=== PATIENT | male | born 1955 | race Caucasian/White ===

== ENCOUNTER 2020-08-21 07:31 | Inpatient (IN) ==
--- NOTE | 2020-08-10 14:49 | PAT Medication Instructions ---
Medication Instructions Date of Service August 10, 2020 Home Medications Medication Instructions Recorded dutasteride 0.5 mg capsule 0.5 mg PO DAILY #30 cap 07/24/20 dutasteride 0.5 mg capsule 0.5 mg PO DAILY Take morning of surgery With a small sip of water, OTHERWISE NOTHING TO EAT OR DRINK AFTER MIDNIGHT: dutasteride 0.5 mg capsule 0.5 mg PO DAILY Other Notes If you have any questions please call us at [phone] or [phone] or [phone] or [phone]
--- NOTE | 2020-08-15 09:45 | Anesthesiology Consultation ---
Date of Service August 15, 2020 Assessment & Plan (1) Encounter for pre-operative examination: COVID Status: As of 08/15 assessment, patient denies travel to endemic area, known exposure/sick contacts, or symptoms of COVID19. Patient instructed that they and their household members must follow strict social distancing guidelines, wear a mask in public and avoid travel/events/gatherings for 14 days prior to surgery. Preoperative COVID19 testing completed today at [facility] (08/15). Patient made aware to self-isolate as much as possible between COVID testing and surgery. 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 He will be working between his covid test and his surgery as he has previously scheduled appointments. Today, for example, he will be going to a [place] to investigate noises in the cam. He was advised to wear a mask and double-mask if he can, and try to maintain six foot distance from others. Chart Review Chart Review: Acceptable Risk for Surgery and Patient seen in Pre Admission Testing Teaching & Discussion Instructed NPO after midnight before surgery, except medications with 15 cc of water. Medication instructions provided according to the [facility] guidelines. History Surgery Operation Date: 08/21/20 12:15 Proposed Procedures p Transurethral Resection Prostate - Joaquim Mills MD Height/Weight Height: 5 ft 8 in Weight: 62.3 kg Allergies Allergy/AdvReac Type Severity Reaction Status Date / Time iodine Allergy Intermediate BP Verified 08/10/20 11:33 DROPPED/FELT LIKE GOING TO PASS OUT Medications Home Medications Medication Instructions Recorded Confirmed Last Taken dutasteride 0.5 mg capsule 0.5 mg PO DAILY #30 cap 07/24/20 08/10/20 Unknown ciprofloxacin HCl 250 mg tablet 250 mg PO BID 10 Days #20 tab 08/13/20 Unknown Past Medical History Medical History BPH (benign prostatic hyperplasia) Khan catheter in place HAS HAD FOR 6 MONTHS (GETS CHANGED AT OFFICE APTS OR E.R.) Exercise / Class Metabolic Activity II 4-5 Yardwork/Stairs/Walk up hill Past Family History Family History Grandfather Diabetes Mother Glaucoma Other No family history of adverse response to anesthesia Past Surgical History Surgical History History of colonoscopy Hx of hemorrhoidectomy Hx of prostate biopsy [place] teeth removed Past Anesthesia History No Hx of Anesthesia Complications and No Family Hx of Anesthesia Complications History of PONV No Hx of PONV and No Hx of Motion Sickness Social History Smoking Status: Never smoker Do You Dip or Chew Tobacco: No Hx Alcohol Use: No Hx Substance Use: No substance use type: does not use Review of Systems Pt denies any recent chest pain, shortness of breath, palpitations, cough, fever, URI, or uncontrolled acid reflux. Physical Exam Vital Signs BP: 135/81 P: 72bpm SPO2: 99% RA T: 98.4 F R: 16 ENMT Mouth: no dental restorations, no chipped teeth and no loose teeth Thyromental Distance: > or= 3.5 Finger Breadths Mallampati Class: I Neck + facial hair (medium length cotto, amenable to trimming); neck extension not limited Respiratory normal respiratory effort, lungs clear to auscultation Cardiovascular RRR, no murmur, no edema Testing Laboratory Results 08/15/20 09:55 08/15/20 09:55 Urine Color Yellow 08/15/20 08:09 Urine Appearance Clear (Clear) 08/15/20 08:09 Urine pH 6.5 (4.5-7.5) 08/15/20 08:09 Ur Specific [place] 1.016 (1.000-1.030) 08/15/20 08:09 Urine Protein 1+ (Negative) H 08/15/20 08:09 Urine Glucose (UA) Negative (Negative) 08/15/20 08:09 Urine Ketones Negative (Negative) 08/15/20 08:09 Urine Nitrite Positive (Negative) A 08/15/20 08:09 Ur Leukocyte Esterase 3+ (Negative) H 08/15/20 08:09 Urine WBC (Auto) >30 /hpf (0-5) H 08/15/20 08:09 Urine RBC (Auto) 0-4 /hpf (0-4) 08/15/20 08:09 U Hyaline Cast (Auto) 1-5 /lpf (0-5) 08/15/20 08:09 U Epithel Cells (Auto) 0-5 /lpf (0-5) 08/15/20 08:09 Urine Bacteria (Auto) Negative (Negative) 08/15/20 08:09 Blood Type O Negative 08/15/20 09:55 Antibody Screen NEGATIVE 08/15/20 09:55 Creatinine consistent with obstructive uropathy. Electrocardiogram Date: 08/15/20 Findings: + NSR @ (61bpm) Minimal voltage criteria for LVH, may be normal variant. ST elevation, consider early repolarization. Patient denies any cardiopulmonary complaints such as chest pain, chest tightness, SOB. Chest X-Ray Date: 08/15/20 Mildly hyperexpanded lungs and chronic changes at the left lung apex. Otherwise, no acute process within the chest.
[2020-08-15 10:41] LABS: Basophils # (auto) 0.02 K/uL (0-0.2); Basophils % (auto) 0.4 %; Eosinophils # (auto) 0.09 K/uL (0-0.5); Eosinophils % (auto) 1.6 %; Hematocrit (blood only) 36.4 % (42-52); Hemoglobin 12.3 g/dL (14.0-18.0); Immature Granulocytes # (auto) 0.01 K/uL (0.00-0.02); Immature Granulocytes % (auto) 0.2 %; Lymphocytes # (auto) 0.95 K/uL (1.2-3.4); Lymphocytes % (auto) 17.2 %; Mean Corpuscular Hemoglobin 29.6 pg (25-34); Mean Corpuscular Hgb Conc 33.8 g/dL (32-36); Mean Corpuscular Volume 87.5 fL (80-100); Mean Platelet Volume 9.2 fL (7.4-10.4); Monocytes # (auto) 0.33 K/uL (0.11-0.59); Neutrophils # (auto) 4.11 K/uL (1.4-6.5); Neutrophils % (auto) 74.6 %; Platelet Count 313 K/uL (130-400); RDW Coefficient of Variation 12.9 % (11.5-14.5); RDW Standard Deviation 41.5 fL (36.4-46.3); Red Blood Count 4.16 M/uL (4.7-6.1); White Blood Count 5.51 K/uL (4.8-10.8)
[2020-08-15 10:48] LABS: Appearance Urine Clear (Clear); Bacteria Urine Automated Negative (Negative); Bilirubin Urine Negative (Negative); Blood Urine 1+ (Negative); Color Urine Yellow; Epithelial Cell Urine Auto 0-5 /lpf (0-5); Glucose Urine UA Negative (Negative); Ketones Urine Negative (Negative); Leukocyte Esterase Urine 3+ (Negative); Nitrite Urine Positive (Negative); Protein Urine 1+ (Negative); RBC Urine Automated 0-4 /hpf (0-4); Specific Gravity Urine 1.016 (1.000-1.030); Urobilinogen Urine Negative (Negative); WBC Urine Automated >30 /hpf (0-5); pH Urine 6.5 (4.5-7.5)
--- NOTE | 2020-08-15 11:17 | XRay Report ---
XR chest Pre-admission PA/Lat HISTORY: Preop. COMPARISON: None. FINDINGS: The lungs are mildly hyperexpanded. The heart is normal in size. No pleural effusions. No p neumothorax. Old, healed left-sided rib fractures. Mild left apical pleural thickening with subpleura l reticulation. This is likely chronic. Otherwise, no focal lung consolidations to suggest pneumonia. No evidence for pulmonary edema. IMPRESSION: Mildly hyperexpanded lungs and chronic changes at the left lung apex. Otherwise, no acute process wit hin the chest. ACT 112: Negative or not required by law. Electronically signed by: Timbo Avina M.D. 08/15/2020 11:16 AM
[2020-08-15 12:12] LABS: BUN Creatinine Ratio 13.6 (10-20); Calcium 9.2 mg/dl (8.5-10.1); Creatinine Clr Calc Pharmacy 34.1 ml/min; Est GFR (African American) 41.4; Est GFR (Non-African American) 35.8; Potassium 4.7 mmol/L (3.5-5.1)
--- NOTE | 2020-08-15 12:24 | Electrocardiogram Report ---
Test Reason : Blood Pressure : / mmHG Vent. Rate : 061 BPM Atrial Rate : 061 BPM P-R Int : 146 ms QRS Dur : 090 ms QT Int : 400 ms P-R-T Axes : 086 088 068 degrees QTc Int : 402 ms Normal sinus rhythm Minimal voltage criteria for LVH, may be normal variant ST elevation, consider early repolarization Borderline ECG No previous ECGs available Confirmed by Damian Escobedo ([id number]) on 08/15/2020 12:23:53 PM Referred By: Joaquim Mills Confirmed By:Praveen Escobedo
[~2020-08-21 07:31] MED LIST: CIPROFLOXACIN / D5W 200 MG/100 ML BAG IV SCH; GENTAMICIN SULFATE 160 MG in DEXTROSE 5% 100 ML IV SCH; LR 15ML/HR IV SCH; MIDAZOLAM HCL 1 MG/ML 2ML VIAL ONE; fentaNYL citrate 100 MCG/2 ML VIAL ONE
[2020-08-21] MEDS ORDERED: LIDOCAINE HCL 2% 2 ML VIAL/AMP(20MG/ML) INFIL ONE (08:04)
[2020-08-21] MEDS ORDERED: ONDANSETRON INJ 2 MG/ML 2 ML VIAL ONE (08:04)
[2020-08-21] MEDS ORDERED: PROPOFOL IV EMULSION 10 MG/ML 20 ML VIAL IV ONE (08:04)
[2020-08-21] MEDS ORDERED: ePHEDrine sulfate 50 MG/ML AMP IV PRN (08:05)
[2020-08-21] MEDS ORDERED: fentaNYL citrate 100 MCG/2 ML VIAL IV PRN (08:05)
[2020-08-21] MEDS ORDERED: ONDANSETRON INJ 2 MG/ML 2 ML VIAL IV PRN ×2 (08:05→13:25)
[2020-08-21] MEDS ORDERED: ATROPINE SULFATE 0.1 MG/ML 10ML SYR IV PRN (08:05)
--- NOTE | 2020-08-21 09:03 | History & Physical Bridge Note ---
Date of Service August 21, 2020 History & Physical Bridge Note I have examined the patient, reviewed the History & Physical and in the interval since the performance of the History & Physical I have noted the following changes of clinical significance: no changes noted
[2020-08-21] MEDS ORDERED: DEXAMETHASONE SOD INJ 4 MG/ML VIAL ONE (09:58)
[2020-08-21] MEDS ORDERED: PHENYLEPHRINE 100MCG/ML 5ML SYR ONE (09:58)
[2020-08-21] MEDS ORDERED: ePHEDrine sulfate 50 MG/ML SYR ONE (09:58)
[2020-08-21] MEDS ORDERED: fentaNYL citrate 100 MCG/2 ML VIAL ONE (10:15)
[2020-08-21] MEDS ORDERED: BELLADONNA/OPIUM SUPP 60 MG SUPP PR ONE ×2 (12:08→12:28)
--- NOTE | 2020-08-21 12:45 | Post Operative Brief Note ---
PG Immediate Post Op with CF Date of Surgery August 21, 2020 Pre & Post Diagnosis Operation Date: 08/21/20 09:05 Pre-Op Diagnosis: Benign Prostatic Hypertrophy with Urinary Retention and Neurogenic Bladder Post-Op Diagnosis: Benign Prostatic Hypertrophy with Urinary Retention and Neurogenic Bladder I identified the patient and participated in the time-out.: Yes Procedure Operation Date: 08/21/20 09:05 Actual Procedures p Transurethral Resection Prostate - Joaquim Mills MD Surgeon Joaquim Mills MD Final Inspection Supervisor none Estimated Blood Loss 200 Findings Consistent with Post-Op Diagnosis Specimens Specimen Description: A. Prostate Chips
--- NOTE | 2020-08-21 12:53 | Anesthesiology Progress Note ---
Date of Service August 21, 2020 Anesthesia Post Procedure Vital Signs Vital Signs: Temp Pulse Pulse Resp BP BP Pulse Ox 08/21/20 12:50 89 19 109/71 100 08/21/20 12:40 76 21 128/83 100 08/21/20 12:30 87 15 140/90 100 08/21/20 12:24 97.7 F 81 22 146/90 H 100 08/21/20 07:45 97.9 F 73 20 168/98 H 100 Transfer of Care Handoff Completed per policy Notes Mental Status: alert / awake / arousable and participated in evaluation Patient Amnestic to Procedure: Yes Nausea / Vomiting: adequately controlled Pain: adequately controlled Airway Patency, RR, SpO2: stable & adequate BP & HR: stable & adequate Hydration State: stable & adequate Anesthetic Complications: no major complications apparent and Pt Satisfied with anesthetic care
[2020-08-21] MEDS ORDERED: oxyCODONE HCL IR 5 MG TAB (IMMEDIATE RELEASE) PO PRN ×2 (13:25)
[2020-08-21] MEDS ORDERED: MoRPHine SULFATE 2 MG/ML CARP IV PRN (13:25)
[2020-08-21] MEDS: LACTATED RINGER'S 1,000 ML IV SCH ×2 (13:41→20:34)
[2020-08-21] MEDS: CIPROFLOXACIN / D5W 400 MG/200 ML BAG IV SCH (20:24)
[2020-08-22] MEDS: LACTATED RINGER'S 1,000 ML IV SCH (02:44)
[2020-08-22 07:39] LABS: Basophils # (auto) 0.01 K/uL (0-0.2); Basophils % (auto) 0.1 %; Eosinophils # (auto) 0.03 K/uL (0-0.5); Eosinophils % (auto) 0.2 %; Hematocrit (blood only) 33.2 % (42-52); Hemoglobin 11.2 g/dL (14.0-18.0); Immature Granulocytes # (auto) 0.02 K/uL (0.00-0.02); Immature Granulocytes % (auto) 0.2 %; Lymphocytes # (auto) 0.93 K/uL (1.2-3.4); Lymphocytes % (auto) 7.6 %; Mean Corpuscular Hemoglobin 29.2 pg (25-34); Mean Corpuscular Hgb Conc 33.7 g/dL (32-36); Mean Corpuscular Volume 86.7 fL (80-100); Monocytes # (auto) 0.84 K/uL (0.11-0.59); Monocytes % (auto) 6.8 %; Neutrophils # (auto) 10.44 K/uL (1.4-6.5); Neutrophils % (auto) 85.1 %; Platelet Count 279 K/uL (130-400); RDW Coefficient of Variation 12.8 % (11.5-14.5); RDW Standard Deviation 40.7 fL (36.4-46.3); Red Blood Count 3.83 M/uL (4.7-6.1); White Blood Count 12.27 K/uL (4.8-10.8)
[2020-08-22 08:15] LABS: BUN Creatinine Ratio 13.7 (10-20); Calcium 8.3 mg/dl (8.5-10.1); Creatinine Clr Calc Pharmacy 32.6 ml/min; Est GFR (African American) 39.2; Est GFR (Non-African American) 33.8; Potassium 3.9 mmol/L (3.5-5.1)
--- NOTE | 2020-08-22 08:28 | Urology Progress Note ---
Date of Service August 22, 2020 Assessment & Plan (1) Acute urinary retention: POD # 1 s/p TURP - home with catheter today Admission and Anticipated Discharge Date Admission Date: August 21, 2020 Subjective no issues overnight feels well urine clear anxious to go home Physical Exam Physical Exam: urine clear Results & Data ([facility]) Vital Signs (Past 12 Hours) Vital Signs Temp Pulse Resp BP Pulse Ox 08/22/20 07:24 36.6 C 74 14 153/82 H 100 08/22/20 02:38 36.5 C 71 16 124/68 98 08/21/20 22:32 36.5 C 86 16 119/73 100 PG Care Time/CCT Total # of Minutes Spent Total Time Spent with Patient: Total time spent is greater than 50% in coordination of care (as documented) at patient's floor/unit and/or counseling patient: Coding Level of Care Code 42627 Subseq Hosp Care Lvl 2 Diagnoses Acute urinary retention R33.8
[2020-08-22] MEDS: CIPROFLOXACIN / D5W 400 MG/200 ML BAG IV SCH (09:31)
--- NOTE | 2020-08-22 14:52 | Discharge Summary ---
Date of Service August 22, 2020 Admission HPI Per Admitting Provider Patient admitted for Transurethral Resection of Prostate secondary to Benign Prostatic Hypertrophy with Urinary Retention and Neurogenic Bladder. Admission Exam Per Admitting Provider Constitutional: WD/WN, vitals as above well developed and healthy appearing Eyes: PERRL, conjunctivae normal, anicteric sclerae ENMT: external ear and nose normal, oropharynx normal Neck: trachea midline, no thyromegaly Respiratory: normal respiratory effort Cardiovascular: Extremities: no edema Gastrointestinal (Abdomen): Inspection/Auscultation: abdomen normal to inspection Percussion/Palpation: abdomen soft Musculoskeletal: no cyanosis or clubbing, extremities motor strength 5/5 Skin: no rashes, warm and dry Neurologic: CN's II-XI intact bilaterally; no focal motor deficits Psychiatric: A+Ox3, euthymic affect Genitourinary: carrasco catheter in place Lymphatic: no cervical or axillary lymphadenopathy Principal Diagnosis Benign Prostatic Hypertrophy with Urinary Retention and Neurogenic Bladder Discharge Exam Constitutional well developed and well nourished; no acute distress and not ill appearing Respiratory normal respiratory effort and able to speak in complete sentences Cardiovascular Extremities: no calf tenderness Gastrointestinal (Abdomen) Inspection/Auscultation: abdomen normal to inspection; abdomen not distended Musculoskeletal Head/Neck/Chest: normocephalic Skin no rashes, warm and dry Neurologic moves all extremities and awake; not confused Psychiatric A+Ox3, euthymic affect Genitourinary Carrasco catheter intact Discharge Data Allergies Allergy/AdvReac Type Severity Reaction Status Date / Time iodine Allergy Intermediate BP Verified 08/21/20 07:52 DROPPED/FELT LIKE GOING TO PASS OUT Procedures Performed Operation Date: 08/21/20 09:05 Actual Procedures p Transurethral Resection Prostate - Joaquim Mills MD Hospital Course (1) BPH w urinary obs/LUTS: (2) Neurogenic bladder: (3) Urinary retention: Patient underwent transurethral resection of prostate on 08/21/[address] Mills. Tolerated procedure well, no complications. No complications post procedure. He was seen POD#1, feeling well, clinically progressing. Vital signs and post-op labs appropriate and as expected. Pain controlled, tolerating advanced diet, ambulating without dizziness. Discharged home in stable condition POD # 1, home with carrasco catheter. Plan to maintain Carrasco catheter for 3 weeks with plans for supportive care and antibiotics for management as outpatient. Discharge home today with carrasco catheter. Total Time Total Time Spent Total Time Spent (In Minutes): 15 Total Time Includes: Examination of the Patient, Discharge Planning, Medication Reconciliation, Communication With Other Providers and Other Discharge Plan Discharge Items Patient Disposition: Home - Self-Care Reason For Visit: Urinary Retention Discharge Diagnosis: Urinary Retention Activity: Per Instructions section Lifting: No more than 25 pounds Bathing Comment: OK to shower 1 day after discharge. No tub baths or soaks. Sexual Activity: Wait until after follow-up appointment Exercise/Sports: Wait until after follow-up appointment Driving/Machine Use: Do not drive if taking prescription pain medication. Non-emergency contact: Surgeon and Urologist Call non-emergency contact if: your pain is not controlled, you have a fever and your temperature is above 101 Follow-up/Referrals: Mitch Cortes MD [Primary Care Provider] - 08/24/20 3:00 pm Diet: Regular Addtl Attending Provider Instructions: Please take all medications as prescribed. Your prescriptions have been sent to the pharmacy. Please take Ciprofloxacin 250mg twice daily for 7 days following discharge. After completing the 7 day course of Ciprofloxacin, please take the Nitrof urantoin macrocrystal 50mg twice daily until your follow-up with Urology. Do not take both antibiotics at the same time. The Urology office will call you with your follow-up appointment date and time. Keep all follow-ups as scheduled. Please call our office at [phone] with any questions, concerns or need to reschedule appointments for any reason. We are happy to assist you. Tips for your recovery at home: Dont be alarmed by brownish or reddish blood or clots in your urine. This is a result of the procedure. This may occur off and on for weeks to months after the procedure but should continue to improve. Drink plenty of fluids during the day (enough to keep your urine very light colored). This will help keep a healthy flow of urine. Do not lift >25 lbs until your followup Avoid constipation. Please use a stool softener (Colace) for the first two weeks after your procedure Be sure to finish the antibiotics as prescribed. If you go home with a catheter, please wash tubing where it enters your body twice daily with mild soap (Dove or Dial). Once your catheter is removed, expect some blood in your urine and some burning when you urinate. You should have an appointment to have this removed, if you do not please call our office to arrange. When to call [facility] [place] [place] Urology at [phone]: Your urine contains heavy blood clots You are constantly leaking urine Fever of 101F or higher, chills, nausea, or vomiting Your pain is not relieved with medication Pending Studies at Discharge: Yes Stand-Alone Forms: My [facility], Smoking Cessation Medications and DC Order Prescriptions: New ciprofloxacin HCl 250 mg tablet 250 mg PO BID 7 Days Qty: 14 RF: 0 nitrofurantoin macrocrystal 50 mg capsule 50 mg PO BID 14 Days Qty: 28 RF: 0 Continued dutasteride 0.5 mg capsule 0.5 mg PO DAILY Qty: 30 RF: 2 Discontinued ciprofloxacin HCl 250 mg tablet 250 mg PO BID 10 Days Qty: 20 RF: 0 Discharge Orders: Discharge Order (Routine); Ordered 08/22/20 Ordered By: Ela Castillo Admission Data Admit Date/Time: 08/21/20 12:43 Attending Provider: Joaquim Mills Admit Provider: Joaquim Mills Primary Care Provider: Mitch Cortes Other Interventions: Discharge Summary Assessment (RN) Last Done: 08/22/20 11:33 Coding Level of Care Code D/C Day Management <30 mins Diagnoses BPH w urinary obs/LUTS N40.1; N13.8 Neurogenic bladder N31.9 Urinary retention R33.9
--- NOTE | 2020-08-24 15:48 | Operative Report (OR) ---
DATE OF OPERATION: 08/21/2020 PROCEDURE PERFORMED: TURP. PREOPERATIVE DIAGNOSES: Neurogenic bladder, urinary retention and benign prostatic hypertrophy with ball valve. POSTOPERATIVE DIAGNOSES: Neurogenic bladder, urinary retention and benign prostatic hypertrophy with ball valve. SURGEON: Joaquim Mills MD. ANESTHESIA: General. INDICATIONS: The patient is a 65-year-old male who initially presented earlier this year over the summer with urinary retention and renal failure. The patient's creatinine was over 4 and with a catheter, his creatinine has come down to 1.9. 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 Because of this and because of the ball valve, which was seen after the episode of bleeding, I elected to try TURP just to be able to allow him to do CIC and possibly see if he can void and partially empty his bladder, so that he does not require CIC. DESCRIPTION OF THE PROCEDURE: The patient was taken to the cystoscopy suite where general anesthesia was administered. He was given preoperative antibiotics and had been treated for infection for a week prior to the procedure. He had Venodyne stockings placed and was placed in dorsal lithotomy position and prepped and draped in the usual sterile fashion. The patient had a 17-Afghan cystoscope passed initially to just evaluate his bladder. He did have a small stricture, which I passively dilated with the 21-Afghan scope and then a 22.5 Afghan scope prior to placing a 26-Afghan resectoscope into the bladder. At this point, I did resect some of the tissue, but the patient had significant bleeding from the ball valve area, which made visualization difficult, so I switched to a button and did button the ball valve, so that it was flushed with the bladder neck. During the course of this, I then focused the attention on the rest of the prostate focusing first on the right lobe of the prostate. Using the button, I was able to resect a good deal of this as well as a good deal of the contralateral side, so that from the veru into the bladder, there was a clear channel and a photo was taken of this. At the end of the procedure, there was no evidence of bleeding. Again, there was a visible channel from the veru into the bladder with no significant ball valve. At the end of the procedure, a 22-Afghan catheter was placed without difficulty. Plan on leaving this in for 3 weeks. The bladder was irrigated with some light pink to oneill urine after fulguration was performed prior to placement of the catheter to make sure there was not any evidence of bleeding and all the chips that had been left in the bladder were removed and sent for pathology. The patient tolerated the procedure well and was transferred to the recovery room in stable condition. I attest to the content of the Intraoperative Record and any orders documented therein. Any exceptions are noted below. RAFAEL
== END 2020-08-22 13:04 | disposition home or self-care (01) ==
LOC: ASU 07:31 → 3N 12:43